=== PATIENT | male | born 1955 | race Caucasian/White ===

== ENCOUNTER 2017-09-14 08:34 | Emergency (ER) | payer OTHER ==
[2017-09-14 08:40] VITALS: BP 169/96
[2017-09-14] MEDS ORDERED: PROPARACAINE 0.5% OPHTH DROPS 15 ML ONE (08:52)
--- NOTE | 2017-09-14 09:01 | ED Physician Documentation ---
PD HPI OPHTHO - Stated complaint Stated Complaint: R EYE IRRITATION - Chief complaint Chief Complaint: Heent - History obtained from History obtained from: Patient - History of Present Illness Timing - onset: Today Timing - details: Abrupt onset (he took shower and felt onset of eye pain just after. Did not strike eye with towel or such.) Location: Right Quality / character: Sharp Associated symptoms: Redness, FB sensation Contributing factors: No: Recent URI, FB, UV light (welding etc) Similar symptoms before: Has not had sx before Recently seen: Not recently seen Review of Systems Constitutional: denies: Fever, Chills Nose: denies: Rhinorrhea / runny nose, Congestion Throat: denies: Sore throat Respiratory: denies: Cough PD PAST MEDICAL HISTORY - Past Medical History Past Medical History: No - Present Medications Home Medications: Ambulatory Orders Medication Instructions Recorded Confirmed No Known Home Medications [No 09/14/17 09/14/17 Known Home Medications] - Allergies Allergies/Adverse Reactions: Allergies Allergy/AdvReac Type Severity Reaction Status Date / Time No Known Drug Allergies Allergy Verified 09/14/17 08:39 - Social History Does the pt smoke?: No Smoking Status: Never smoker Does the pt drink ETOH?: No Does the pt have substance abuse?: No - Immunizations Immunizations are current?: Yes PD ED PE NORMAL - Vitals Vital signs reviewed: Yes - General General: Alert and oriented X 3, Well developed/nourished - HEENT HEENT: PERRL, EOMI PD ED PE EXPANDED - Eyes Eyes: Injected conj/sclera, Corneal abrasion, Fluorescein uptake. No: Exudate, Conj/sclera FB, Corneal FB Results - Vitals Vitals: Oxygen O2 Source Room air PD MEDICAL DECISION MAKING - ED course Complexity details: considered differential (small abrasion without FB. had been doing woodwork yesterday, perhaps had some debris on brow or such that fell in when wiping after shower. ), d/w patient Departure - Departure Disposition: 01 Home, Self Care Clinical Impression: Acute right eye pain Corneal abrasion Qualifiers: Encounter type: initial encounter Laterality: right Qualified Code(s): S05.01XA - Injury of conjunctiva and corneal abrasion without foreign body, right eye, initial encounter Condition: Stable Record reviewed to determine appropriate education?: Yes Instructions: ED Eye Injury Corneal Abrasion Comments: You can use the proparacaine numbing eyedrops sparingly as needed for discomfort and do not be doing any chores or activities while using those as you will lose your protective reflex of feeling discomfort. Do not use it past today as he should have it rechecked if it is still that uncomfortable after a day. Recheck if worsening symptoms, signs of infection, visual change, other concerns. If this heals over the next day or 2 then no follow-up is particularly needed. Tylenol or ibuprofen if needed for pain as well. Discharge Date/Time: 09/14/17 09:46
== END 2017-09-14 09:46 | disposition home or self-care (01) ==
LOC: ED 08:34
DX: S05.01XA Injury of conjunctiva and corneal abrasion without foreign body, right eye, initial encounter (principal); X58.XXXA Exposure to other specified factors, initial encounter
CPT/HCPCS: 99282; 99283; J3490

== ENCOUNTER 2018-03-27 10:24 | Outpatient (CLI) | payer OTHER | END 2018-03-27 10:25 | disposition home or self-care (01) | LOC: SC 10:24 | PROVIDERS: ATTEND Internal Medicine Pulmonary Disease | DX: G47.33 Obstructive sleep apnea (adult) (pediatric) (principal); K21.9 Gastro-esophageal reflux disease without esophagitis | CPT/HCPCS: 99203; 99212 ==

== ENCOUNTER 2018-06-10 09:41 | Outpatient (CLI) | payer OTHER | END 2018-06-10 09:42 | disposition home or self-care (01) | LOC: SC 09:41 | PROVIDERS: ATTEND Nurse Practitioner Family | DX: G47.33 Obstructive sleep apnea (adult) (pediatric) (principal) | CPT/HCPCS: 99212; 99214 ==

== ENCOUNTER 2019-06-04 08:42 | Outpatient (CLI) | payer OTHER ==
[2019-06-04 10:00] VITALS: BP 130/72
--- NOTE | 2019-06-04 10:00 | SLEEP CARE CONSULTATION ---
Information from patient questionnaire entered by Rashmi Levin. I have reviewed and concur with the information entered by Rashmi Levin. This document represents the service I personally performed and the decisions made by me, Kamala Mack, RN, MSN, LACQUER MACHINE FEEDER. - History of Present Illness HPI: NATHALY MEDINA was diagnosed to have severe, AHI 32, obstructive sleep apnea- hypopnea syndrome and returned today for CPAP therapy annual follow-up. The recurrent history of epitaxis is less with adjustment of humdity. He has lost about 18 pounds and plans on losing about 20 more pounds. He has been successful in weight loss with increasing activities and diet modification. Equipment obtained from: [employer] (patient is very dissatified with [employer] customer service and has chose to buy online for reduced samaniego. His cost of pocket is less than copay. He declined transfering to any other equipment company.) Mask style: Full face Mask brand: Resmed Backup mask available: Yes Last cushion change: 2 months ago - Compliance Data Reviewed with Patient Average duration of nightly device use: 7.7 Compliance rate % (4+hrs/night over past 30 nights): 100 (180 days) Current pressure setting (cmH2O): 8-15 Average residual AHI: 0.3 Average large leak: 9.1 liters per minute - Subjective Patient concerns: reports: air blowing in eyes (only when hoang grows out and needs a trim.), nasal congestion (chronic due to past injuries), epistaxis. denies: aerophagia, mask discomfort, mask leak noise, condensation in mask/hose, dry mouth, nose, throat (Left nostril weekly minimum and generally mild) Observed to snore while using device: No Current pressure setting perceived as: comfortable On therapy, patient: reports: sleeping better, awakening more refreshed, more rested overall. denies: drowsiness while driving Initial [place] Sleepiness Scale score: 2 Current [place] Sleepiness Scale score: 0 - Review of Systems Review of systems same as previous: No Cardiovascular: reports: high blood pressure (sometimes such as dentist) Gastrointestinal: denies: heartburn (sometimes) Ear/Nose/Throat: reports: nose bleeds, injury to nose, tonsillectomy, wisdom teeth removed Musculoskeletal: reports: joint pain, neck pain, back pain - Allergies/Medications None No known drug allergies: No Allergies and home medications reviewed: Yes - Physical Examination Blood Pressure: 130/72 Cuff size: long Heart Rate: 59 O2 Saturation: 97 Height: 5 ft 7 in Weight (kg): 84.368 kg Body Mass Index: 29.1 BMI Classification: Overweight - Impression 1. Obstructive Sleep Apnea-Hypopnea Syndrome, severe, with good treatment compliance and good apnea control. On CPAP therapy, there is improved sleep quality and continues to feel more rested overall. Patient advised to discuss an ENT referral for recurrent epitaxis with his PCP with rationale discussed and he agreed with plan. Since he does not want to use a DME at this time for supplies he was advised that if any problems with CPAP function to contact this office so can get sent in repair to a new DME of choice. He is also losing weight with plans of losing about 20 more pounds. Thus he was advised how continued weight loss could reduce his CPAP pressure requirements. Currently he is on an autoCPAP range that could accommodate this weight loss. However, he was advised of symptoms to report for further pressure adjustment. Patient does not sleep on his back and his previous sleep study done elsewhere does not have supine sleep shown. Thus if unable to use CPAP due to illness or lack of electricity he is advised to sleep with head of bed elevated 30-40 degrees to reduce apnea risk. Patient's apnea severity and rationale for treatment to reduce apnea, improve sleep quality and reduce cardiovascular and cerebrovascular events was reviewed. I also reviewed the benefit of consistent device use of CPAP for hypertension. - Plan Plan: Continue auto CPAP pressure at 8-15 cm H2O. Notify me if snoring with the mask or feeling that the pressure is too much or too little. Continue to lose weight. Follow up with PCP for ENT evaluation for chronic epitaxis. Contact this office for DME transfer if needed as discussed. Return for follow-up in one year, or sooner if concerns arise. I spent 100% of this 30 minute visit face to face with the patient with greater than 50% of this was spent time counseling the patient and coordination of care.
== END 2019-06-04 08:43 | disposition home or self-care (01) ==
LOC: SC 08:42
PROVIDERS: ATTEND Nurse Practitioner Family
DX: G47.33 Obstructive sleep apnea (adult) (pediatric) (principal)
CPT/HCPCS: 99212; 99214

== ENCOUNTER 2020-04-28 07:45 | Outpatient (CLI) | payer OTHER ==
[2020-04-28 11:54] LABS: BASOPHILS % (AUTO) 0.3 %; EOSINOPHILS # (AUTO) 0.3 10^3/uL (0.0-0.7); EOSINOPHILS % (AUTO) 3.7 %; HGB - HEMOGLOBIN 13.1 g/dL (14.0-18.0); LYMPHOCYTES # (AUTO) 1.6 10^3/uL (1.5-3.5); LYMPHOCYTES % (AUTO) 22.7 %; MEAN CORPUSCULAR HEMOGLOBIN 28.2 pg (27.0-31.0); MEAN CORPUSCULAR HGB CONC 31.2 g/dL (32.0-36.0); MEAN CORPUSCULAR VOLUME 90.3 fL (80.0-94.0); MONOCYTES # (AUTO) 0.5 10^3/uL (0.0-1.0); MONOCYTES % (AUTO) 7.2 %; NEUTROPHILS # (AUTO) 4.6 10^3/uL (1.5-6.6); NEUTROPHILS % (AUTO) 65.8 %; PLT - PLATELET COUNT 290 10^3/uL (130-450); RED BLOOD COUNT 4.65 10^6/uL (4.70-6.10); RED CELL DISTRIBUTION WIDTH 13.6 % (12.0-15.0)
[2020-04-28 12:16] LABS: ALBUMIN 3.8 g/dL (3.2-5.5); ALBUMIN/GLOBULIN RATIO 1.2 (1.0-2.2); ALKALINE PHOSPHATASE 59 IU/L (42-121); ALT ALANINE AMINOTRANSFERASE 28 IU/L (10-60); AST ASPARTATE AMINOTRANSFERASE 25 IU/L (10-42); BILIRUBIN,TOTAL 0.7 mg/dL (0.2-1.0); BUN - BLOOD UREA NITROGEN 17 mg/dL (6-20); CALCIUM 8.6 mg/dL (8.5-10.3); CARBON DIOXIDE - CO2 27 mmol/L (21-32); CHLORIDE 105 mmol/L (101-111); CHOL/HDL RATIO 5.7 (<5.0); CHOLESTEROL 216 mg/dL; CREATININE 0.9 mg/dL (0.6-1.2); GLUCOSE 113 mg/dL (70-100); HDL CHOLESTEROL 38 mg/dL; LDL CHOLESTEROL,CALCULATED 157 mg/dL; LDL/HDL RATIO 4.1 (<3.6); SODIUM 138 mmol/L (135-145); TOTAL PROTEIN 6.9 g/dL (6.7-8.2); VLDL CHOLESTEROL 21 mg/dL
== END 2020-04-28 23:59 | disposition home or self-care (01) ==
LOC: LAB.WCP 07:45
PROVIDERS: ATTEND Family Medicine
DX: E78.5 Hyperlipidemia, unspecified (principal); Z12.5 Encounter for screening for malignant neoplasm of prostate
CPT/HCPCS: 36415; 80053; 80061; 83721; 84153; 84443; 85025

== ENCOUNTER 2020-06-08 15:57 | Outpatient (CLI) | payer OTHER ==
[2020-06-08 16:45] VITALS: BP 150/80
--- NOTE | 2020-06-08 16:45 | SLEEP CARE CONSULTATION ---
Information from patient questionnaire entered by Angie Zapata. I have reviewed and concur with the information entered by Angie Zapata. This document represents the service I personally performed and the decisions made by me, Kamala Mack, RN, MSN, TICKET COLLECTOR OR USHER. History of Present Illness Service Date and Time: 06/08/2020 1557 Previous diagnosis: Severe, Obstructive Sleep Apnea-Hypopnea Syndrome AHI: 32 Reason for follow up: annual Equipment type: CPAP Equipment obtained from: Other (online lower prices than local [facility]) Mask style: Full face Mask brand: Resmed Backup mask available: Yes (old mask ) Last cushion change: 1 month ago Prior sleep studies: Yes Year and Where: 2010 [place], [place] Type of Sleep Study: Polysomnography CPAP Compliance Data - Data Reviewed with Patient Average duration of nightly device use: 7h 48m Compliance rate %: 100 Current pressure setting (cmH2O): 8-15 Humidity setting: auto Heated hose setting: auto Average residual AHI: 0.4 Average large leak: 7.8 liters minute Subjective Patient concerns: denies: aerophagia, mask discomfort, air blowing in eyes, mask leak noise, condensation in mask/hose, nasal congestion, dry mouth, nose, throat, epistaxis Observed to snore while using device: No Current pressure setting perceived as: comfortable On therapy, patient: reports: sleeping better, awakening more refreshed, being more awake and alert during the day, more rested overall. denies: drowsiness while driving Initial [place] Sleepiness Scale score: 2 Current [place] Sleepiness Scale score: 0 Allergies and Home Medications Known drug allergies: No Home medication list reviewed: No (no medications ) Review of Systems Review of systems same as previous: Yes Physical Exam Blood Pressure: 150/80 Cuff size: long Heart Rate: 79 O2 Saturation: 94 Height: 5 ft 7 in Weight: 200 lb Weight change since last visit: regained 25 pounds Body Mass Index: 31.3 BMI Classification: Obese Impression and Plan 1. Obstructive Sleep Apnea-Hypopnea Syndrome, severe, with good treatment compliance and good apnea control. On CPAP therapy, the patient has better sleep quality and is more rested overall. Patient has re-gained weight. Currently patients BMI is 31.3 obesity class . Obesity increases the risk of apnea, CPAP pressure requirements and overall health risks especially cardiovascular and diabetes. Thus patient is advised to lose weight. A diet consultation can be helpful in achieving optimal weight loss goals. The patient would like to reduce to 160 pounds bringing their BMI down to about 25. Weight loss could also reduce blood pressure. Patient encouraged to discuss their weight loss goals with their PCP and consider a referral to a equine internship.The patient's CPAP pressure range should accommodate some weight loss. Symptoms to report for additional pressure adjustment discussed. Patients mask leaks intermittently high that he relates to his ohang length. Currently mask leaks are not affecting apnea control. Patient's apnea severity and rationale for treatment to reduce apnea, improve sleep quality and reduce cardiovascular and cerebrovascular events was reviewed. 2. Elevated Blood pressure, 150/80. Patient monitors his blood pressure and logs on his phone and last pressure was 134/77 but has been elevated intermittently in past. He is aware of risks of untreated blood pressure and how his goal of losing weight can reduce blood pressure. If remains elevated, he is to contact his PCP for further evaluation. Patient currently not on any medications for blood pressure. * Continue auto CPAP pressure at 8-15 cmH2O * Notify me if snoring with mask or feeling that the pressure is too much or too little * Attempt to lose weight * Follow up with PCP if blood pressure still elevated. * Call this office if any problems using CPAP * Return for follow up in 1 year , or sooner if concerns arise Visit Type: In Office Time Spent with Patient (minutes): 20 Provider Statement: I spent 100% of the Face to Face Visit with the patient with greater than 50% spent counseling the patient and coordination of care.
== END 2020-06-08 15:58 | disposition home or self-care (01) ==
LOC: SC 15:57
PROVIDERS: ATTEND Nurse Practitioner Family
DX: G47.33 Obstructive sleep apnea (adult) (pediatric) (principal); R03.0 Elevated blood-pressure reading, without diagnosis of hypertension; E66.9 Obesity, unspecified; Z68.31 Body mass index [BMI] 31.0-31.9, adult
CPT/HCPCS: 99212; 99214

== ENCOUNTER 2020-07-29 12:56 | Day surgery (SDC) | payer MEDICARE ==
[2020-07-29] MEDS ORDERED: LACTATED RINGERS 1,000 ML IV ONE ×2 (13:08→15:18)
[2020-07-29] MEDS ORDERED: fentaNYL 250 MCG/5 ML VIAL IVP ONE (13:36)
[2020-07-29] MEDS ORDERED: MIDAZOLAM 2 MG/2 ML VIAL IVP ONE (13:36)
[2020-07-29 15:35] VITALS: BP 124/71
== END 2020-07-29 12:57 | disposition home or self-care (01) ==
LOC: SDS 12:56
PROVIDERS: ATTEND Surgery
PROC: 0DBK8ZX Excision of Ascending Colon, Via Natural or Artificial Opening Endoscopic, Diagnostic (ICD-10-PCS; principal; 2020-07-29 13:45)
DX: Z12.11 Encounter for screening for malignant neoplasm of colon (principal); K57.30 Diverticulosis of large intestine without perforation or abscess without bleeding; Z87.19 Personal history of other diseases of the digestive system
CPT/HCPCS: 45380; J3010; J7120

== ENCOUNTER 2020-08-11 05:50 | Outpatient (CLI) | payer MEDICARE ==
[2020-08-11 12:15] LABS: PSA FREE 0.285 ng/mL (0.16-2.81)
[2020-08-11 12:16] LABS: PSA TOTAL 1.286 ng/mL (0.000-2.000)
== END 2020-08-11 23:59 | disposition home or self-care (01) ==
LOC: LAB.WCP 05:50
PROVIDERS: ATTEND Family Medicine
DX: R97.20 Elevated prostate specific antigen [PSA] (principal)
CPT/HCPCS: 36415; 84153; 84154

== ENCOUNTER 2021-02-03 07:00 | Outpatient (CLI) | payer MEDICARE, OTHER ==
[2021-02-03 13:46] LABS: PSA FREE 0.277 ng/mL (0.16-2.81)
[2021-02-03 13:47] LABS: PSA TOTAL 1.112 ng/mL (0.000-2.000)
== END 2021-02-03 23:59 | disposition home or self-care (01) ==
LOC: LAB.WCP 07:00
PROVIDERS: ATTEND Nurse Practitioner
DX: R97.20 Elevated prostate specific antigen [PSA] (principal)
CPT/HCPCS: 36415; 84153; 84154

== ENCOUNTER 2021-06-16 13:41 | Outpatient (CLI) | payer MEDICARE ==
--- NOTE | 2021-06-16 13:52 | SLEEP CARE CONSULTATION ---
Information from patient questionnaire entered by Rashmi Levin. I have reviewed and concur with the information entered by Rashmi Levin. This document represents the service I personally performed and the decisions made by , Amy Crook ARNP. History of Present Illness Service Date and Time: 06/16/2021 1340 Previous diagnosis: Severe, Obstructive Sleep Apnea-Hypopnea Syndrome AHI: 32 (in 2010) Reason for follow up: annual (last seen 06/2020) Equipment type: CPAP Equipment obtained from: Other (online lower prices than local DME [facility]) Mask style: Full face Mask brand: Resmed Backup mask available: Yes (old mask) Last cushion change: 3 months ago Prior sleep studies: Yes Year and Where: 2010 - [facility] additional information: NATHALY MEDINA was diagnosed to have severe, AHI 32, obstructive sleep apnea- hypopnea syndrome and returns via Telehealth visit today for CPAP therapy annual follow-up. CPAP Compliance Data - Data Reviewed with Patient Average duration of nightly device use: 8 hr 11 min Compliance rate %: 99 (180 days) Current pressure setting (cmH2O): 8-15 Humidity settin Average residual AHI: 0.3 Subjective Patient concerns: denies: aerophagia, mask discomfort, air blowing in eyes, mask leak noise, condensation in mask/hose, nasal congestion, dry mouth, nose, throat, epistaxis, other Observed to snore while using device: No Current pressure setting perceived as: comfortable On therapy, patient: reports: sleeping better, awakening more refreshed, being more awake and alert during the day, more rested overall. denies: drowsiness while driving Initial [place] Sleepiness Scale score: 2 (in 2018) Current [place] Sleepiness Scale score: 0 Allergies and Home Medications Home medication list reviewed: Yes (no changes) Review of Systems Review of systems same as previous: Yes (changes) Physical Exam Vital signs obtained and entered by: Telehealth visit to reduce exposure during Covid pandemic Height: 5 ft 8 in Impression and Plan 1. Obstructive Sleep Apnea-Hypopnea Syndrome, severe, with excellent treatment compliance and excellent apnea control. On CPAP therapy, the patient has better sleep quality and is more rested overall. Patient is very satisfied with his current treatment and pressure setting. He does not like to deal with [employer] for his supplies so he purchases his online on his own. He does not want to transfer to a new DME at this time. He has no issue or concerns about his mask or CPAP use. We will follow up with him in 1 year, or sooner if he has any concerns. Patient's apnea severity and rationale for treatment to reduce apnea, improve sleep quality and reduce cardiovascular and cerebrovascular events was reviewed. I also reviewed the benefit of consistent device use of CPAP for gastric reflux. Patient encouraged to lose weight to improve his overall health. * Continue auto CPAP pressure at 8-15 cmH2O * Notify me if snoring with mask or feeling that the pressure is too much or too little * Attempt to lose weight * Call this office if any problems using CPAP * Return for follow up in 1 year, or sooner if concerns arise Counseling Topics: Spare mask, Weight loss health impact Visit Type: Telehealth Video Video Type: VSee Patient Location: Home Location of Provider: Office Patient agrees and consents to this telehealth visit type: Yes Patient agrees to have their insurance billed: Yes Time Spent with Patient (minutes): 10 Provider Statement: I spent 100% of the Telehealth Video Call with the patient with greater than 50% spent counseling the patient and coordination of care.
== END 2021-06-16 13:42 | disposition home or self-care (01) ==
LOC: SC 13:41
PROVIDERS: ATTEND Nurse Practitioner Family
DX: G47.33 Obstructive sleep apnea (adult) (pediatric) (principal)

== ENCOUNTER 2022-01-19 07:38 | Outpatient (CLI) | payer MEDICARE ==
[2022-01-19 12:03] LABS: ESTIMATED AVERAGE GLUCOSE 146 mg/dL (70-100); HEMOGLOBIN A1c% 6.7 % (4.27-6.07)
[2022-01-19 12:06] LABS: BASOPHILS % (AUTO) 0.5 %; EOSINOPHILS # (AUTO) 0.3 10^3/uL (0.0-0.7); EOSINOPHILS % (AUTO) 3.2 %; HGB - HEMOGLOBIN 13.9 g/dL (14.0-18.0); LYMPHOCYTES # (AUTO) 1.8 10^3/uL (1.5-3.5); LYMPHOCYTES % (AUTO) 21.6 %; MEAN CORPUSCULAR HEMOGLOBIN 28.8 pg (27.0-31.0); MEAN CORPUSCULAR HGB CONC 32.3 g/dL (32.0-36.0); MEAN CORPUSCULAR VOLUME 89.2 fL (80.0-94.0); MEAN PLATELET VOLUME 10.7 fL (7.4-11.4); MONOCYTES # (AUTO) 0.6 10^3/uL (0.0-1.0); MONOCYTES % (AUTO) 7.9 %; NEUTROPHILS # (AUTO) 5.4 10^3/uL (1.5-6.6); NEUTROPHILS % (AUTO) 66.6 %; PLT - PLATELET COUNT 305 10^3/uL (130-450); RED BLOOD COUNT 4.82 10^6/uL (4.70-6.10); WHITE BLOOD COUNT 8.1 x10^3/uL (4.8-10.8)
[2022-01-19 12:12] LABS: ALBUMIN 3.9 g/dL (3.2-5.5); ALBUMIN/GLOBULIN RATIO 1.3 (1.0-2.2); ALKALINE PHOSPHATASE 59 IU/L (42-121); ALT ALANINE AMINOTRANSFERASE 37 IU/L (10-60); AST ASPARTATE AMINOTRANSFERASE 25 IU/L (10-42); BILIRUBIN,TOTAL 0.6 mg/dL (0.2-1.0); BUN - BLOOD UREA NITROGEN 15 mg/dL (6-20); CARBON DIOXIDE - CO2 26 mmol/L (21-32); CHLORIDE 103 mmol/L (101-111); CHOL/HDL RATIO 7.7 (<5.0); CHOLESTEROL 255 mg/dL; CREATININE 0.9 mg/dL (0.6-1.2); GFR - MDRD 84 (>89); GLUCOSE 101 mg/dL (70-100); HDL CHOLESTEROL 33 mg/dL; LDL CHOLESTEROL,CALCULATED 198 mg/dL; POTASSIUM 4.2 mmol/L (3.5-5.0); SODIUM 139 mmol/L (135-145); TOTAL PROTEIN 6.8 g/dL (6.7-8.2); TRIGLYCERIDES 122 mg/dL; VLDL CHOLESTEROL 24 mg/dL
[2022-01-19 12:19] LABS: THYROID STIMULATING HORMONE 2.16 uIU/mL (0.34-5.60)
== END 2022-01-19 07:39 | disposition home or self-care (01) ==
LOC: LAB.N 07:38
PROVIDERS: ATTEND Family Medicine
DX: M54.50 Low back pain, unspecified (principal); E78.5 Hyperlipidemia, unspecified; R73.9 Hyperglycemia, unspecified; G89.29 Other chronic pain
CPT/HCPCS: 36415; 80053; 80061; 83036; 83721; 84443; 85025

== ENCOUNTER 2022-07-13 15:09 | Outpatient (CLI) | payer MEDICARE ==
[2022-07-13 13:25] VITALS: BP 154/86
--- NOTE | 2022-07-13 13:25 | SLEEP CARE CONSULTATION ---
Information from patient questionnaire entered by Shefali Couch MA. I have reviewed and concur with the information entered by Shefali Couch MA. This document represents the service I personally performed and the decisions made by Armaan verdugo Caren J, ARNP. History of Present Illness Service Date and Time: 07/13/2022 1300 Previous diagnosis: Severe, Obstructive Sleep Apnea-Hypopnea Syndrome AHI: 32.0 (in 2010) Reason for follow up: annual (06/2021) Equipment type: CPAP Equipment obtained from: Other (online lower prices than local [facility]) Mask style: Full face Mask brand: Resmed (AirTouch F20) Backup mask available: Yes (old mask) Last cushion change: 90 days Prior sleep studies: Yes Year and Where: 2010 - [place], [place] HPI additional information: NATHALY MEDINA was diagnosed to have severe, AHI 32.0, obstructive sleep apnea- hypopnea syndrome and returned today for CPAP therapy annual follow-up. Sleep Study - Results Prior sleep studies: Yes Year and Where: 2010 - [place], [place] CPAP Compliance Data - Data Reviewed with Patient Average duration of nightly device use: 7 hours 28 minutes Compliance rate %: 100 (180/180 days used) Current pressure setting (cmH2O): 8-15 Average residual AHI: 0.5 Average large leak: 10.5 L/min Subjective Patient concerns: denies: aerophagia, mask discomfort, air blowing in eyes, mask leak noise, condensation in mask/hose, nasal congestion, dry mouth, nose, throat, epistaxis, other Observed to snore while using device: No Current pressure setting perceived as: comfortable On therapy, patient: reports: sleeping better, awakening more refreshed, being more awake and alert during the day, more rested overall. denies: drowsiness while driving Initial [place] Sleepiness Scale score: 2 (in 2018) Current [place] Sleepiness Scale score: 0 Allergies and Home Medications Home medication list reviewed: Yes (no changes) Allergy and home medication list: Allergies No Known Drug Allergies Allergy (Verified 07/29/20 13:27) Review of Systems Review of systems same as previous: Yes (no changes) Physical Exam Vital signs obtained and entered by: CROW ALMAGUER Blood Pressure: 154/86 Cuff size: regular Heart Rate: 85 O2 Saturation: 97 Height: 5 ft 8 in Weight: 206 lb (with clothes) Body Mass Index: 31.3 BMI Classification: Obese Impression and Plan 1. Obstructive Sleep Apnea-Hypopnea Syndrome, severe, with excellent treatment compliance and excellent apnea control. On CPAP therapy, the patient has better sleep quality and is more rested overall. Patient has significant improvement of his sleep apnea and is satisfied with current CPAP therapy. Patient denies problems with oral dryness, nasal congestion, epistaxis, skin irritation or aerophagia. Patient continues to get his supplies online. He has no issues or concerns today. Patient's apnea severity and rationale for treatment to reduce apnea, improve sleep quality and reduce cardiovascular and cerebrovascular events was reviewed. I also reviewed the benefit of consistent device use of CPAP for gastric reflux. 2. Obesity, unspecified. Currently patients BMI is 31.3. Obesity increases the risk of apnea, CPAP pressure requirements and overall health risks especially cardiovascular and diabetes. Thus patient is advised to lose weight. Weight loss can be done with reducing portion size, reducing refined foods and balancing content with vegetables, fruit and whole grain foods. In addition, patient encouraged to get regular exercise. * Continue auto CPAP pressure at 8-15 cmH2O * Notify me if snoring with mask or feeling that the pressure is too much or too little * Attempt to lose weight * Call this office if any problems using CPAP * Return for follow up in 1 year, or sooner if concerns arise Counseling Topics: Spare mask, Weight loss health impact Visit Type: In Office Time Spent with Patient (minutes): 11 Provider Statement: I spent 100% of the Face to Face Visit with the patient with greater than 50% spent counseling the patient and coordination of care.
== END 2022-07-13 15:10 | disposition home or self-care (01) ==
LOC: SC 15:09
PROVIDERS: ATTEND Nurse Practitioner Family
DX: G47.33 Obstructive sleep apnea (adult) (pediatric) (principal); E66.9 Obesity, unspecified; Z68.31 Body mass index [BMI] 31.0-31.9, adult
CPT/HCPCS: 99212; G0463

== ENCOUNTER 2022-08-02 08:00 | Outpatient (CLI) | payer MEDICARE ==
--- NOTE | 2022-08-02 16:15 | XRAY Report ---
PROCEDURE: Knee 4 View LT INDICATIONS: LEFT KNEE PAIN TECHNIQUE: 4 views of the left knee(s) were acquired. COMPARISON: None. FINDINGS: Bones: No fractures or dislocations. No suspicious bony lesions. There is bilateral mild to modera te medial as well as moderate left lateral and mild left patellofemoral compartment narrowing. No ero sions are identified. Soft tissues: No joint effusion. No suspicious soft tissue calcifications. IMPRESSION: Arthritic changes as noted above most notable on the left. Reviewed by: Sarika Palumbo MD on 08/02/2022 4:13 PM PDT Approved by: Sarika Palumbo MD on 08/02/2022 4:13 PM PDT Station ID: [id number]
== END 2022-08-02 23:59 | disposition home or self-care (01) ==
LOC: DI.WOS 08:00
PROVIDERS: ATTEND Physician Assistant
DX: M17.12 Unilateral primary osteoarthritis, left knee (principal)

== ENCOUNTER 2022-09-11 17:32 | Outpatient (CLI) | payer MEDICARE ==
[2022-09-11 20:01] LABS: BASOPHILS % (AUTO) 0.3 %; EOSINOPHILS # (AUTO) 0.2 10^3/uL (0.0-0.7); EOSINOPHILS % (AUTO) 2.4 %; HCT - HEMATOCRIT 44.7 % (42.0-52.0); HGB - HEMOGLOBIN 14.4 g/dL (14.0-18.0); LYMPHOCYTES # (AUTO) 2.5 10^3/uL (1.5-3.5); LYMPHOCYTES % (AUTO) 26.6 %; MEAN CORPUSCULAR HEMOGLOBIN 29.1 pg (27.0-31.0); MEAN CORPUSCULAR HGB CONC 32.2 g/dL (32.0-36.0); MEAN CORPUSCULAR VOLUME 90.3 fL (80.0-94.0); MEAN PLATELET VOLUME 10.8 fL (7.4-11.4); MONOCYTES # (AUTO) 0.7 10^3/uL (0.0-1.0); MONOCYTES % (AUTO) 7.8 %; NEUTROPHILS # (AUTO) 5.9 10^3/uL (1.5-6.6); NEUTROPHILS % (AUTO) 62.3 %; PLT - PLATELET COUNT 298 10^3/uL (130-450); RED BLOOD COUNT 4.95 10^6/uL (4.70-6.10); RED CELL DISTRIBUTION WIDTH 13.2 % (12.0-15.0); WHITE BLOOD COUNT 9.4 x10^3/uL (4.8-10.8)
[2022-09-11 20:20] LABS: ALBUMIN 3.9 g/dL (3.2-5.5); ALBUMIN/GLOBULIN RATIO 1.1 (1.0-2.2); ALKALINE PHOSPHATASE 67 IU/L (42-121); ALT ALANINE AMINOTRANSFERASE 27 IU/L (10-60); AST ASPARTATE AMINOTRANSFERASE 23 IU/L (10-42); BILIRUBIN,TOTAL 0.4 mg/dL (0.2-1.0); BUN - BLOOD UREA NITROGEN 18 mg/dL (6-20); CALCIUM 9.2 mg/dL (8.5-10.3); CARBON DIOXIDE - CO2 26 mmol/L (21-32); CHLORIDE 103 mmol/L (101-111); CHOL/HDL RATIO 8.3 (<5.0); CHOLESTEROL 273 mg/dL; GFR - MDRD 75 (>89); GLUCOSE 90 mg/dL (70-100); HDL CHOLESTEROL 33 mg/dL; LDL CHOLESTEROL,CALCULATED 197 mg/dL; POTASSIUM 4.2 mmol/L (3.5-5.0); SODIUM 134 mmol/L (135-145); TOTAL PROTEIN 7.3 g/dL (6.7-8.2); TRIGLYCERIDES 213 mg/dL; VLDL CHOLESTEROL 43 mg/dL
[2022-09-11 20:31] LABS: THYROID STIMULATING HORMONE 1.54 uIU/mL (0.34-5.60)
[2022-09-11 20:39] LABS: ESTIMATED AVERAGE GLUCOSE 146 mg/dL (70-100); HEMOGLOBIN A1c% 6.7 % (4.27-6.07)
== END 2022-09-11 17:33 | disposition home or self-care (01) ==
LOC: LAB.N 17:32
PROVIDERS: ATTEND Family Medicine
DX: E11.9 Type 2 diabetes mellitus without complications (principal); I10 Essential (primary) hypertension; E78.5 Hyperlipidemia, unspecified
CPT/HCPCS: 36415; 80053; 80061; 83036; 83721; 84443; 85025

== ENCOUNTER 2023-03-30 09:14 | Outpatient (CLI) | payer MEDICARE ==
[2023-03-30 18:51] LABS: CREATININE 0.8 mg/dL (0.6-1.2); POTASSIUM 4.7 mmol/L (3.5-5.0)
[2023-03-30 18:56] LABS: CREATININE,URINE 149.4 mg/dL; MICROALBUM/CREATININE RATIO,UR 8.7 ug/mg (<30.0); MICROALBUMIN,URINE 1.3 mg/dL (0-300.0)
[2023-03-30 20:01] LABS: ESTIMATED AVERAGE GLUCOSE 143 mg/dL (70-100); HEMOGLOBIN A1c% 6.6 % (4.27-6.07)
== END 2023-03-30 09:15 | disposition home or self-care (01) ==
LOC: LAB.N 09:14
PROVIDERS: ATTEND Family Medicine
DX: E11.9 Type 2 diabetes mellitus without complications (principal); R03.0 Elevated blood-pressure reading, without diagnosis of hypertension; E66.9 Obesity, unspecified; Z12.5 Encounter for screening for malignant neoplasm of prostate
CPT/HCPCS: 36415; 80048; 82043; 82570; 83036; G0103; 84153

== ENCOUNTER 2024-03-27 07:32 | Outpatient (CLI) | payer MEDICARE ==
[2024-03-27] MEDS ORDERED: DIATRIZOATE MEGLU/DIATRIZO SOD 30 ML BOTTLE PO ONE (07:34)
[2024-03-27] MEDS ORDERED: iohexoL-300 100 ML VIAL ONE (07:34)
[2024-03-27 07:54] LABS: CREATININE 1.1 mg/dL (0.6-1.3)
[2024-03-27] MEDS: iohexoL-300 100 ML VIAL IVP ONE (09:13)
[2024-03-27] MEDS: DIATRIZOATE MEGLU/DIATRIZO SOD 30 ML BOTTLE PO ONE (09:13)
--- NOTE | 2024-03-27 13:20 | CT Report ---
PROCEDURE: Abdomen/Pelvis W INDICATIONS: DIARRHEA CONTRAST: 100ml omni 300 TECHNIQUE: After the administration of intravenous contrast, a CT scan of the abdomen and pelvis was performed. Images were recorded and evaluated at appropriate window settings. Reformats: coronal and sagittal. F or radiation dose reduction, the following was used: automated exposure control, adjustment of mA and /or kV according to patient size. COMPARISON: None. FINDINGS: Image quality: Diagnostic. Lower chest: Patulous lower esophagus with mild wall thickening. Small hiatal hernia. Liver: No solid mass. Gallbladder: No radiopaque stones or wall thickening. Biliary tree: No intrahepatic or extrahepatic dilation, accounting for age. Spleen: No splenomegaly. Pancreas: No pancreatic ductal dilation. Adrenals: No adrenal nodule. Kidneys and ureters: No hydronephrosis. No renal cystic lesion which requires follow up. No solid mas s. Stomach, bowel and peritoneum: No gastric or small bowel dilation. No abnormal wall thickening. No pa thologic free fluid. Diverticulosis without evidence of diverticulitis. Lymph nodes: No central or retroperitoneal adenopathy. Vessels: No infrarenal aortic aneurysm. Patent portal vein. PELVIS Reproductive organs: Prostatomegaly. Bladder: No abnormal wall thickening, accounting for underdistention. Pelvic lymph nodes: No pelvic adenopathy by size criteria. Bones: No aggressive osseous abnormality. Degenerative changes of the spine. Other: Small inguinal hernias containing fat. IMPRESSION: Patulous lower esophagus with mild wall thickening and small hiatal hernia. Findings may indicate eso phagitis. Correlate with symptoms. Colonic diverticulosis without evidence of diverticulitis. Small inguinal hernias containing fat. Given change in bowel habits, consider diagnostic colonoscopy to exclude an occult bowel malignancy. Reviewed by: Carlos Calabrese MD on 03/27/2024 1:19 PM PDT Approved by: Carlos Calabrese MD on 03/27/2024 1:19 PM PDT Station ID: [id number]
[2024-03-27 16:34] LABS: H. PYLORIS ANTIGEN STL NEGATIVE (Negative)
[2024-03-30 17:07] LABS: GIARDIA LAMBLIA AG EIA Negative (Negative)
== END 2024-03-27 07:33 | disposition home or self-care (01) ==
LOC: DI 07:32
PROVIDERS: ATTEND Family Medicine
DX: R19.7 Diarrhea, unspecified (principal); K44.9 Diaphragmatic hernia without obstruction or gangrene; K57.30 Diverticulosis of large intestine without perforation or abscess without bleeding; K40.20 Bilateral inguinal hernia, without obstruction or gangrene, not specified as recurrent
CPT/HCPCS: 36415; 74177; 82565; 83993; 87045; 87046; 87177; 87209; 87329; 87338; 87427; 87493; Q9963; Q9967

== ENCOUNTER 2024-07-30 12:51 | Outpatient (CLI) | payer MEDICARE ==
--- NOTE | 2024-07-30 13:22 | Sleep Patient Instructions ---
Sleep Center Visit Summary - Patient Visit Information Reason for Visit: Annual follow-up for PAP therapy - Patient Instructions Additional Instructions: You will continue with CPAP therapy with pressure set at 8-15 cmH2O. A supply prescription will be updated with your DME supplier. Please follow up with the sleep care office in 1 year. - Clinic Information Contact: [facility] [address] [place] [address] [email or web address] T: [phone]
--- NOTE | 2024-07-30 13:27 | SLEEP CARE CONSULTATION ---
Information from patient questionnaire entered by Radha Roldan. I have reviewed and concur with the information entered by Radha Roldan. This document represents the service I personally performed and the decisions made by , Amy Crook ARNP. History of Present Illness Service Date and Time: 07/30/2024 1251 Previous diagnosis: Severe, Obstructive Sleep Apnea-Hypopnea Syndrome AHI: 32.0 (in 2010) Reason for follow up: annual (Annual - Last seen 07/2023) Equipment type: CPAP (RESMED Airsense 10, s/u 6 2017) Equipment obtained from: Other (Online) Mask style: Full face (Resmed F20) Mask brand: Resmed Backup mask available: Yes Last cushion change: 3 weeks Prior sleep studies: Yes Year and Where: 2010 - [facility] additional information: NATHALY MEDINA was diagnosed to have severe, AHI 32, obstructive sleep apnea- hypopnea syndrome and returned today for CPAP therapy annual follow-up. Sleep Study - Results Prior sleep studies: Yes Year and Where: 2010 - [place] CPAP Compliance Data - Data Reviewed with Patient Average duration of nightly device use: 8 h 51 mins Compliance rate %: 99 (179/180 days used) Current pressure setting (cmH2O): 8 - 15 Average residual AHI: 0.5 Central apnea: 0.3 Obstructive apnea: 0 Hypopnea: 0.2 Average large leak: 6.8 L/min Subjective Patient concerns: denies: aerophagia, mask discomfort, air blowing in eyes, mask leak noise, condensation in mask/hose, nasal congestion, dry mouth, nose, throat, epistaxis Observed to snore while using device: No Current pressure setting perceived as: comfortable On therapy, patient: reports: sleeping better, awakening more refreshed, being more awake and alert during the day, more rested overall. denies: drowsiness while driving Initial [place] Sleepiness Scale score: 2 (in 2018) Current [place] Sleepiness Scale score: 0 (07/30/24) Allergies and Home Medications Known drug allergies: No Drug allergies reviewed: Yes Home medication list reviewed: Yes (no changes) Allergy and home medication list: Allergies No Known Drug Allergies Allergy Review of Systems Review of systems same as previous: Yes (no changes) Physical Exam Vital signs obtained and entered by: Amy Sadler NP Blood Pressure: 141/75 Cuff size: long (left) Heart Rate: 82 O2 Saturation: 97 Height: 5 ft 8 in Weight: 182 lb 9.6 oz Body Mass Index: 27.7 BMI Classification: Overweight Impression and Plan 1. Obstructive Sleep Apnea-Hypopnea Syndrome, severe, with good treatment compliance and good apnea control. On CPAP therapy, the patient has better sleep quality and is more rested overall. Patient has significant improvement of their sleep apnea and is satisfied with current CPAP therapy. Patient denies problems with oral dryness, nasal congestion, epistaxis, skin irritation or aerophagia. Patient's apnea severity and rationale for treatment to reduce apnea, improve sleep quality and reduce cardiovascular and cerebrovascular events was reviewed. I also reviewed the benefit of consistent device use of CPAP for gastric reflux. 2. Overweight, unspecified. Currently patients BMI is 27.7. Obesity increases the risk of apnea, CPAP pressure requirements and overall health risks especially cardiovascular and diabetes. Thus patient is advised to lose weight. * Continue auto CPAP pressure at 8-15 cmH2O * Update supply prescription. * Notify me if snoring with mask or feeling that the pressure is too much or too little * Attempt to lose weight * Call this office if any problems using CPAP * Return for follow up in 12 months, or sooner if concerns arise Counseling Topics: Spare mask, Weight loss health impact Prescriptions: Device supplies Follow up with Sleep Care in: 1 year Visit Type: In Office Time Spent with Patient (minutes): 14 Provider Statement: I spent 100% of the Face to Face Visit with the patient with greater than 50% spent counseling the patient and coordination of care.
[2024-07-30 13:37] VITALS: BP 141/75; O2SAT 97
== END 2024-07-30 12:52 | disposition home or self-care (01) ==
LOC: SC 12:51
PROVIDERS: ATTEND Nurse Practitioner Family
DX: G47.33 Obstructive sleep apnea (adult) (pediatric) (principal); E66.3 Overweight; Z68.27 Body mass index [BMI] 27.0-27.9, adult
CPT/HCPCS: 99212; G0463